=== PATIENT | male | born 1990 | race African-American/Black ===

== ENCOUNTER 2018-02-24 13:28 | Emergency (ER) | payer SELFPAY ==
[2018-02-24 13:35] VITALS: BP 152/98
--- NOTE | 2018-02-24 13:49 | ER Document Report ---
ED General - General Chief Complaint: Shortness Of Breath Stated Complaint: WEAKNESS,SHORTNESS OF BREATH Time Seen by Provider: 02/24/18 13:37 Notes: 27-year-old male here with complaints of cough congestion runny nose sore throat shortness of breath weakness lightheadedness vomiting diarrhea ongoing for the past 2 weeks. He has tried [id number] medications including Mucinex with minimal relief. Eating drinking urinating defecating per usual. No known sick contacts. Immunizations up-to-date. TRAVEL OUTSIDE OF THE [place] IN LAST 30 DAYS: No - Related Data Allergies/Adverse Reactions: No Known Allergies Allergy (Verified 02/24/18 13:34) Past Medical History - Social History Smoking Status: Current Every Day Smoker Chew tobacco use (# tins/day): No Frequency of alcohol use: Heavy Drug Abuse: None Family History: Reviewed & Not Pertinent Patient has suicidal ideation: No Patient has homicidal ideation: No Renal/ Medical History: Denies: Hx Peritoneal Dialysis Psychiatric Medical History: Reports: Hx Anxiety, Hx Depression - Immunizations Hx Diphtheria, Pertussis, Tetanus Vaccination: Yes - 2010 Review of Systems - Review of Systems Notes: See history of present illness for pertinent positive review of systems; otherwise all review of systems have been reviewed and are negative Physical Exam - Vital signs Vitals: Temp Pulse Resp BP Pulse Ox 98.8 F 88 16 152/98 H 97 02/24/18 13:34 02/24/18 13:34 02/24/18 13:34 02/24/18 13:34 02/24/18 13:34 - Notes Notes: PHYSICAL EXAMINATION: GENERAL: Well-appearing and in no acute distress. HEAD: Atraumatic, normocephalic. EYES: Pupils equal round and reactive to light, extraocular movements intact, sclera anicteric, conjunctiva are normal. ENT: nares patent, oropharynx minimal erythema without exudates. Moist mucous membranes. NECK: Normal range of motion, supple without lymphadenopathy LUNGS: CTAB and equal. No wheezes rales or rhonchi. HEART: Regular rate and rhythm without murmurs ABDOMEN: Soft, no tenderness. No facial grimacing/wincing upon palpation. No guarding, no rebound. EXTREMITIES: Normal range of motion, no pitting edema. No cyanosis. NEUROLOGICAL: Cranial nerves grossly intact. Normal sensory/motor exams. PSYCH: Normal mood, normal affect. SKIN: Warm, Dry, normal turgor, no rashes or lesions noted Course - Re-evaluation Re-evalutation: 02/24/18 13:49 MEDICAL DECISION MAKING: Concern for upper respiratory infection, most likely viral The other consideration is allergic rhinitis with almost 2 weeks of symptoms We will prescribe montelukast asked to see if this will help his symptoms and instructed taking daily Zyrtec Instructed patient on fever control with Tylenol and/or (if applicable) Motrin Also discussed keeping hydrated with water or Gatorade/Pedialyte Instructed follow-up PCP next day or few Patient understands and agrees to the plan of care - Vital Signs Vital signs: Temp Pulse Resp BP Pulse Ox 98.8 F 88 16 152/98 H 97 02/24/18 13:34 02/24/18 13:34 02/24/18 13:34 02/24/18 13:34 02/24/18 13:34 Discharge - Discharge Clinical Impression: Viral syndrome Condition: Good Disposition: HOME, SELF-CARE Additional Instructions: You were seen in the emergency department at [facility]. You likely have an upper respiratory infection, most likely viral, OR the other likelihood is allergic rhinitis for which I will prescribe the montelukast. Use Motrin and/or Tylenol for fever control. You may use saline nasal spray for stuffy nose. Stay hydrated. Please followup with your primary physician in the next few days for further management/evaluation. Please return to the emergency department for worsening of symptoms or any symptom that you deem to be concerning or life-threatening. Thank you for allowing us to be part of your care. This is your school/work note for your Emergency Department evaluation today. Prescriptions: Meloxicam 7.5 mg PO DAILYP PRN #14 tablet PRN Reason: Montelukast Sodium 10 mg PO DAILY #14 tablet
== END 2018-02-24 13:47 | disposition home or self-care (01) ==
LOC: ER 13:28
DX: R06.02 Shortness of breath (principal); R53.1 Weakness; B34.9 Viral infection, unspecified; F17.200 Nicotine dependence, unspecified, uncomplicated
CPT/HCPCS: 99284